=== PATIENT | female | born 1975 | race Caucasian/White ===

== ENCOUNTER 2016-06-21 18:09 | Emergency (ER) | payer BC | END 2016-06-22 00:34 | disposition home or self-care (01) | LOC: ER1 18:09 | DX: S02.2XXA Fracture of nasal bones, initial encounter for closed fracture (principal); S02.19XA Other fracture of base of skull, initial encounter for closed fracture; V89.2XXA Person injured in unspecified motor-vehicle accident, traffic, initial encounter; Y92.830 Public park as the place of occurrence of the external cause | CPT/HCPCS: 12011; 70450; 70486; 84703; 99284 ==